=== PATIENT | female | born 1940 | race Caucasian/White ===

== ENCOUNTER 2021-04-29 12:38 | Outpatient (CLI) | payer MEDICARE, SELFPAY ==
--- NOTE | ~2021-04-29 | XR_ITS ---
EXAMINATION: XR lumbar spine min 4V DATE: 04/29/2021 13:25 INDICATION: Low back pain TECHNIQUE: Anteroposterior, lateral, and bilateral oblique views of the lumbar spine, and cone-down l ateral view of the lumbosacral junction were obtained. COMPARISON: None. FINDINGS: There is an age-indeterminate T12 compression fracture with 50% loss of vertebral body heig ht. No lumbar spine fracture is identified. There is grade 2 anterolisthesis of L4 on L5. There is se fabby loss of intervertebral disc space height at L1-2 and moderate loss of intervertebral disc space height throughout the remainder of the lumbar spine. The vertebral body heights are maintained. Calci fied atherosclerosis is noted. There are multiple phleboliths of the pelvis. 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 IMPRESSION: 1. Age-indeterminate T12 compression fracture. 2. Moderate to severe lumbar spondylosis. Reviewed, dictated and finalized at location B.
== END 2021-04-29 12:39 | disposition home or self-care (01) ==
LOC: ANHIMG 12:43
PROVIDERS: PCP Family Medicine; Visit Provider Family Medicine
DX: M47.816 Spondylosis without myelopathy or radiculopathy, lumbar region (principal); M48.54XA Collapsed vertebra, not elsewhere classified, thoracic region, initial encounter for fracture
CPT/HCPCS: 72110

== ENCOUNTER 2022-06-08 11:39 | Outpatient (CLI) | payer MEDICARE, SELFPAY ==
--- NOTE | 2022-06-08 11:47 | ECG_ITS ---
Measurements Intervals [place] Rate: 66 P: 36 DE: 186 QRS: 16 QRSD: 81 T: 29 QT: 389 QTc: 410 Interpretive Statements SINUS RHYTHM NONSPECIFIC ST ABNORMALITY ABNORMAL NO PREVIOUS ECG AVAILABLE FOR COMPARISON Electronically Signed On 06-08-2022 14:12:36 CDT by Julio C Lang M.D.
== END 2022-06-08 11:40 | disposition home or self-care (01) ==
PROVIDERS: PCP Family Medicine; Visit Provider Family Medicine
DX: R73.03 Prediabetes (principal); E78.5 Hyperlipidemia, unspecified; I10 Essential (primary) hypertension; R94.31 Abnormal electrocardiogram [ECG] [EKG]
CPT/HCPCS: 93005

== ENCOUNTER 2023-01-05 09:47 | Outpatient (CLI) | payer MEDICARE, SELFPAY | END 2023-01-05 09:48 | disposition home or self-care (01) | LOC: ANHAUDIO 09:48 | PROVIDERS: PCP Family Medicine; Visit Provider Family Medicine | DX: H90.3 Sensorineural hearing loss, bilateral (principal) | CPT/HCPCS: 92557; 92567 ==

== ENCOUNTER 2025-04-15 13:35 | Outpatient (CLI) | payer MEDICARE, SELFPAY ==
--- OUTSIDE RECORDS SUMMARY | 2025-04-15 13:40 | XMS_ITS | Patient Health Record ---
Author Organization [facility] Address [address] [place], [place] [id number] Support Name Relationship Address Phone Charmaine Mosquera Guarantor Unknown [phone] Reason For Referral No Information Medications Medication SIG (Take, Route, Frequency, Duration) Notes Start Date End Date Status Aleve *Pick strength-f orm from [employer] for eRX* Active Aspirin *Pick strength-f orm from [employer] for eRX* Active Atenolol *Pick strength-f orm from [employer] for eRX* Active Latanoprost *Pick strength-f orm from [employer] for eRX* Active losartan *Reorder from [employer] for eRx and Interaction Alerts* Active Super B Maxi Complex *Reorder fr om [employer] for eRx and Interaction Alerts* Active Problems Problem Type SNOMED Code ICD Code Onset Dates Problem Status W/U Status Risk Notes Problem Essential hypertension (94671596) Essential (primary) hypertension (I10) 3 Active confirmed Problem Pain of right knee region (finding) (969837820367896 ) Pain in right knee (M25.561) 3 Active confirmed Problem Pre-procedure evaluation check (957256591) Encounter for other preprocedural examination (Z01.818) 3 Active confirmed Plan Of Treatment No Information Insurance Providers Payer Name Payer Address Payer Phone Subscriber Number Group Number Insured Name Patient Relationship to Insured Coverage Start Date Coverage End Date [employer] Complete [address] [address] [place], [place] [id number] [phone] [id number] Hussain Charmaine jean baptiste Self - patient is the insured 3
== END 2025-04-15 13:36 | disposition home or self-care (01) ==
LOC: ANHAUDIO 13:35
PROVIDERS: PCP Family Medicine; Visit Provider Student in an Organized Health Care Education/Training Program
DX: H90.3 Sensorineural hearing loss, bilateral (principal); H74.8X1 Other specified disorders of right middle ear and mastoid; Z74.09 Other reduced mobility
CPT/HCPCS: 92557; 92567